=== PATIENT | female | born 1950 | race Caucasian/White ===

== ENCOUNTER 2018-12-08 15:22 | Inpatient (IN) | payer OTHER ==
[~2018-12-08] VITALS: Ht 152.4 cm; Wt 74.4 kg
[2018-12-29] MEDS ORDERED: SYNTHROID88 MCG PO (12:56)
[2018-12-29] MEDS ORDERED: LOSARTAN-HCTZ1 EACH PO (12:57)
[2018-12-29] MEDS ORDERED: ARIMIDEX PO (12:57)
[2018-12-29] MEDS ORDERED: ZYRTEC10 M3 PO (12:58)
[2018-12-29] MEDS ORDERED: PEPCID40 MG PO (12:58)
[2019-01-17] MEDS ORDERED: ANASTROZOLE1 MG PO (08:39)
[2019-01-17] MEDS ORDERED: SIMVASTATIN20 MG PO (08:40)
[2019-01-17] MEDS ORDERED: METOPROLOL SUCC25 MG PO (08:41)
[2019-01-20] MEDS ORDERED: HYOSCYAMINE0.125 M1 SL (14:28)
[2019-01-20] MEDS ORDERED: INTESTINEX680 M1 PO (14:29)
[2019-01-20] MEDS ORDERED: ULTRACET PO (14:29)
== END 2019-01-20 18:13 | disposition home or self-care (01) | DRG 331 ==
LOC: EDSTATUS 12-29 09:15 → ADM 12-29 09:15 → O/R 01-17 07:00 → SURG 01-17 08:19 → O/R 01-17 09:15 → SURG 01-17 19:55
PROVIDERS: ADMIT Surgery
PROC: 0DTJ4ZZ Resection of Appendix, Percutaneous Endoscopic Approach (ICD-10-PCS; 2019-01-17)
PROC: 07TD4ZZ Resection of Aortic Lymphatic, Percutaneous Endoscopic Approach (ICD-10-PCS; 2019-01-17)
PROC: 0DTF4ZZ Resection of Right Large Intestine, Percutaneous Endoscopic Approach (ICD-10-PCS; principal; 2019-01-17 07:00)
DX: C18.0 Malignant neoplasm of cecum (principal); R59.0 Localized enlarged lymph nodes; R19.4 Change in bowel habit; K36 Other appendicitis

== ENCOUNTER 2018-12-10 08:52 | Outpatient (CLI) | payer OTHER | END 2018-12-10 09:04 | disposition home or self-care (01) | LOC: RAD 08:52 → LAB 08:52 → RAD 09:04 | DX: I10 Essential (primary) hypertension (principal); C18.0 Malignant neoplasm of cecum; R59.0 Localized enlarged lymph nodes; R19.4 Change in bowel habit; R10.84 Generalized abdominal pain; D50.8 Other iron deficiency anemias ==

== ENCOUNTER 2018-12-14 07:49 | Outpatient (CLI) | payer OTHER | END 2018-12-14 11:16 | disposition home or self-care (01) | LOC: TOM 07:49 | DX: C18.0 Malignant neoplasm of cecum (principal); R59.0 Localized enlarged lymph nodes; R19.4 Change in bowel habit; R10.84 Generalized abdominal pain; D50.8 Other iron deficiency anemias | CPT/HCPCS: 74177; Q9965 ==

== ENCOUNTER 2018-12-22 07:18 | Outpatient (CLI) | payer OTHER | END 2018-12-22 07:27 | disposition home or self-care (01) | LOC: LAB 07:18 | DX: C18.0 Malignant neoplasm of cecum (principal); R59.0 Localized enlarged lymph nodes; R19.4 Change in bowel habit; R10.84 Generalized abdominal pain; D50.8 Other iron deficiency anemias ==